=== PATIENT | male | born 1985 | race Caucasian/White ===

== ENCOUNTER 2018-05-16 01:43 | Emergency (ER) | payer SELFPAY ==
[2018-05-16] MEDS ORDERED: LIDOCAINE 1% MPF 2 ML AMPULE ONE (02:22)
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
== END 2018-05-16 03:44 | disposition home or self-care (01) ==
LOC: ER 01:43
PROC: 0JQG0ZZ Repair Right Lower Arm Subcutaneous Tissue and Fascia, Open Approach (ICD-10-PCS; principal; 2018-05-16)
DX: S61.511A Laceration without foreign body of right wrist, initial encounter (principal); W25.XXXA Contact with sharp glass, initial encounter; Y93.89 Activity, other specified; Y92.9 Unspecified place or not applicable
CPT/HCPCS: 99284; J2001